=== PATIENT | male | born 2000 | race Caucasian/White ===

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

== ENCOUNTER 2020-07-30 13:39 | Emergency (ER) | payer OTHER, SELFPAY ==
[2020-07-30 13:42] VITALS: BP 134/87; PULSE 75; RESP 16; TEMP 37; O2SAT 96
--- NOTE | 2020-07-30 14:03 | W.ED.GENAD ---
Discharge Plan Disposition Patient Disposition: HOME Condition: Stable Discharge Details Clinical Impression: Epistaxis Primary Care Provider: Fredrick Tobar ED Provider: Martin Dorantes Home Meds and New Rx's Prescriptions: Continued buspirone 15 mg tablet 30 mg PO BID Qty: 60 RF: 11 loratadine [Claritin] 10 mg Tablet 10 mg PO DAILY RF: 0 Discharge Instructions Instructions: Nosebleed (ED) Additional Instructions: As we discussed, [id number] nasal saline, antibiotic ointment to help keep your nostrils moist, adequately treat your seasonal allergies, and continue using humidifier in your bedroom. Please watch for new or worsening symptoms and return to the ER for any concerns. Otherwise reach out to our ENT specialist using the name and number that I provide if conservative therapy is not better controlling your nosebleeds. Referrals: Tor Inman DO [OSTEOPATHIC DOCTOR] - Medical Decision Making 20-year-old gentleman reports frequent primarily right-sided epistasis, none now. Reports that dry settings, sneezing, runny nose all exacerbate his symptoms. He has not tried anything at home that would help his symptoms and is never followed up with an ENT specialist. Denies any other easy bruising or bleeding. Denies coagulopathies in his family. This is an otherwise healthy 20-year-old gentleman, hemodynamically stable, who is currently asymptomatic. I do not believe that any laboratory values are warranted at this time. Ample time was spent discussing proper epistasis treatment including direct pressure, humidifier in his bedroom, [id number] nasal saline, applying antibiotic ointment to keep the nostrils moist, avoiding direct manipulation. We also discussed signs and symptoms to return immediately to the ER, otherwise he will reach out to an ENT specialist with referral that I provide to discuss other options if he does not have good results with more conservative therapy. Medical Records Medical records reviewed: Yes I reviewed the patient's medical records. HPI General Mode of arrival: ambulatory. Date/Time Provider Initiated Documentation: 07/30/20 14:03. Limitations to Documentation: no limitations. Information obtained by: patient. HPI Narrative: This is a 20-year-old male, history of anxiety, presenting to the ER for evaluation regarding nosebleeds. He states that he has been dealing with nosebleeds most of his life, primarily from the right nostril. 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 His nosebleeds are increasing in frequency and he reports having had 5 small ones today. He is able to manage these without difficulty applying direct pressure. He does have seasonal allergies and feels as though when he has sneezing, blowing his nose, or has a runny nose, his nosebleeds are more frequent as well. He denies any manual manipulation. Patient denies family history of coagulopathies, personal history of easy bruising or bleeding. He denies any blood going down the back of his throat, hematuria, black tarry stools or bright red blood in his stools. Patient reports that he is currently asymptomatic. He questions if he may benefit from a nasal saline Related Data Home Medications Medication Instructions Recorded Confirmed buspirone 15 mg tablet 30 mg PO BID #60 tab 07/16/20 07/30/20 loratadine [Claritin] 10 mg PO DAILY 07/30/20 07/30/20 Previous Rx's Medication Instructions Recorded buspirone 15 mg tablet 30 mg PO BID #60 tab 07/16/20 Allergies Allergy/AdvReac Type Severity Reaction Status Date / Time CATS Allergy Mild Uncoded 07/30/20 13:45 DUST MITES Allergy Mild STUFFY Uncoded 07/30/20 13:45 NOSE, ITCHY EYES General Stated Complaint: Epistaxis EMERY: 3 Review of Systems Constitutional Constitutional: Denies fever(s) and Denies headache(s) ENT Ears, Nose, Mouth, and Throat: Denies headache(s), Reports epistaxis, Reports nasal congestion, Reports nasal discharge, Denies nasal obstruction, Denies nasal trauma and Denies neck pain Respiratory Respiratory: Denies cough Gastrointestinal Gastrointestinal: Denies abdominal pain, Denies melena and Denies hematochezia Musculoskeletal Musculoskeletal: Denies neck pain Integumentary/Breasts Skin/Breast: Denies rash Neurologic Neurologic: Denies headache(s) Hematologic/Lymphatic Hematologic/Lymphatic: Denies easy bleeding and Denies easy bruising [facility] Medical History (Updated 07/30/20 @ 14:10 by KERRY Lomeli) Humerus fracture (03/29/14) Left wrist fracture (08/05/06) Family History Mother Healthy adult on routine physical examination Alcohol abuse Father Essential hypertension Hyperlipidemia Other Essential hypertension PGF Heart disease PGF Hyperlipidemia PGF Social History Smoking/Tobacco Use Status: Never Alcohol Intake: current Alcohol Intake frequency: a few times a month Drug use: Never Substance use type: does not use Adopted: No Caregiver/Support person: No Foster care: No Household members: family Housing: house Pets and animals: Yes Pets and animals: dog(s) Sexually active: Yes Do you think of yourself as: straight/heterosexual Current gender identity: male What is your relationship status?: never How often do you talk on the phone with friends or family?: twice per week How often do you get together with friends or relatives?: once per week How often do you attend holiness or mandaen services?: decline to answer Do you belong to any clubs or organized social groups?: no Panel score (0-1 are the most socially isolated patients): 1 What type of physical activity do you participate in: weight lifting and running Duration: 60-90 minutes/day Frequency: 5-6 times per week Liz/Yazdanism: Mormon Special liz needs: No Seatbelt use: sometimes Helmet use: No Drive intox or ride w/intox motorcycle delivery driver: No Do you feel safe at home: Yes Do you feel safe in your relationship?: Yes Exam Const General: cooperative, healthy appearing, comfortable and no acute distress Orientation: alert, awake and oriented x3 HENMT Head: normal to inspection, normocephalic and atraumatic Ears: hearing grossly normal bilaterally, external ears normal, TM's normal bilaterally and EAC's normal General nose exam: external nose normal, no nasal polyps, no nasal discharge, no epistaxis, mucous membranes and turbinates abnormal boggy and septum abnormal (Right nostril, septum with nonbleeding scab) Face and sinus: normal facial exam Mouth: oral mucosae normal and moist mucous membranes Teeth and gingiva: dentition normal Throat: posterior oropharynx normal Eyes Conjunctivae: conjunctivae normal Sclera: sclerae normal Neck Neck: normal visual inspection, full ROM, no lymphadenopathy, trachea midline, supple and nontender Resp Effort & Inspection: normal respiratory effort and able to speak in complete sentences Cardio Rate: regular rate Rhythm: regular rhythm Skin General skin exam: no rashes or lesions noted Neuro General: patient alert, patient awake, moves all extremities and no focal motor deficits Sensory Exam: no sensory deficits noted Psych Appearance: grossly normal Mental Status: mental status grossly normal Course Vital Signs Vital signs: Vital Signs Temperature 37 C 07/30/20 13:42 Pulse 75 07/30/20 13:42 Respiratory Rate 16 07/30/20 13:42 Blood Pressure 134/87 07/30/20 13:42 Pulse Oximetry 96 07/30/20 13:42 Temperature 37 C 07/30/20 13:42 Temperature Source Skin 07/30/20 13:42 Pulse 75 07/30/20 13:42 Respiratory Rate 16 07/30/20 13:42 Respiratory Effort 07/30/20 13:46 Blood Pressure 134/87 07/30/20 13:42 Blood Pressure Position Sitting 07/30/20 13:42 Pulse Oximetry 96 07/30/20 13:42 Oxygen Delivery Method Room Air 07/30/20 13:42 Oxygen Flow Rate 0 07/30/20 13:42 Pain Level 0 07/30/20 13:42
== END 2020-07-30 14:15 | disposition home or self-care (01) ==
PROVIDERS: Emergency Provider Physician Assistant; PCP Family Medicine
DX: R04.0 Epistaxis (principal)
CPT/HCPCS: 99282; 99283

== ENCOUNTER 2021-02-16 21:55 | Outpatient (REF) | payer OTHER, SELFPAY | END 2021-02-16 21:56 | disposition home or self-care (01) | LOC: LBN 21:55 | PROVIDERS: PCP Family Medicine; Visit Provider Physician Assistant | DX: J02.9 Acute pharyngitis, unspecified (principal) | CPT/HCPCS: 87070 ==

== ENCOUNTER 2021-10-16 16:43 | Outpatient (REF) | payer OTHER, SELFPAY ==
[2021-10-19 18:39] LABS: Chlamydia Result Negative (Negative); GC Result Negative (Negative)
== END 2021-10-16 16:44 | disposition home or self-care (01) ==
LOC: LBN 16:43
PROVIDERS: PCP Family Medicine; Visit Provider Family Medicine
DX: Z20.2 Contact with and (suspected) exposure to infections with a predominantly sexual mode of transmission (principal); Z11.3 Encounter for screening for infections with a predominantly sexual mode of transmission
CPT/HCPCS: 87491; 87591